=== PATIENT | female | born 1960 | race Caucasian/White ===

== ENCOUNTER → 2020-01-11 10:06 | Outpatient (BNVA) | payer MEDICARE, MEDICAID, SELFPAY | PROVIDERS: Family Provider Nurse Practitioner; PCP Nurse Practitioner; Visit Provider Specialist | DX: R41.89 Other symptoms and signs involving cognitive functions and awareness (principal); E78.5 Hyperlipidemia, unspecified | CPT/HCPCS: 96116; 99213 ==

== ENCOUNTER → 2020-01-26 08:53 | Outpatient (BNVA) | payer MEDICARE, MEDICAID, SELFPAY | PROVIDERS: Family Provider Nurse Practitioner; PCP Nurse Practitioner; Visit Provider Anesthesiology | DX: G89.29 Other chronic pain (principal); M54.41 Lumbago with sciatica, right side; M54.42 Lumbago with sciatica, left side; M54.16 Radiculopathy, lumbar region; M54.9 Dorsalgia, unspecified; Z79.891 Long term (current) use of opiate analgesic | CPT/HCPCS: 99214 ==

== ENCOUNTER → 2020-07-26 14:18 | Outpatient (BNVA) | payer MEDICARE, MEDICAID, SELFPAY | PROVIDERS: Family Provider Nurse Practitioner; PCP Nurse Practitioner; Visit Provider Anesthesiology | DX: G89.29 Other chronic pain (principal); M54.42 Lumbago with sciatica, left side; M54.41 Lumbago with sciatica, right side; Z79.891 Long term (current) use of opiate analgesic | CPT/HCPCS: 99212; 99214 ==

== ENCOUNTER 2020-11-10 10:33 | Outpatient (CLI) | payer MEDICARE, MEDICAID, SELFPAY ==
--- NOTE | 2020-11-10 10:45 | XR_ITS ---
WS: [id number] Exam: XR foot RT min 3V* [id number] Date/Time of Exam: 11/10/2020 11:13 AM Reason For Exam: PAIN IN R FOOT Comparison 03/11/2018. No acute fracture or dislocation. Articular relationships are intact. Soft tissues are unremarkable. Mild degenerative change at the first MP joint and midfoot joints. Osteopenia. XR/XR foot RT min 3V* [id number] IMPRESSION: 1. No fracture noted. 2. Mild degenerative changes and osteopenia calcaneal spurs.
== END 2020-11-10 10:34 | disposition home or self-care (01) ==
PROVIDERS: PCP Nurse Practitioner; Visit Provider Nurse Practitioner Family
DX: M77.31 Calcaneal spur, right foot (principal); M85.871 Other specified disorders of bone density and structure, right ankle and foot
CPT/HCPCS: 73630

== ENCOUNTER → 2021-01-31 08:57 | Outpatient (BNVA) | payer MEDICARE, MEDICAID, SELFPAY | PROVIDERS: PCP Nurse Practitioner; Visit Provider Anesthesiology | DX: G89.29 Other chronic pain (principal); M54.16 Radiculopathy, lumbar region; M54.41 Lumbago with sciatica, right side; M54.42 Lumbago with sciatica, left side; Z79.891 Long term (current) use of opiate analgesic | CPT/HCPCS: 99213 ==

== ENCOUNTER → 2021-07-19 09:00 | Outpatient (BNVA) | payer MEDICARE, MEDICAID, SELFPAY | PROVIDERS: PCP Nurse Practitioner; Visit Provider Anesthesiology | DX: G89.29 Other chronic pain (principal); M54.40 Lumbago with sciatica, unspecified side; M54.16 Radiculopathy, lumbar region; Z79.891 Long term (current) use of opiate analgesic | CPT/HCPCS: 99213 ==

== ENCOUNTER 2022-03-28 14:31 | Outpatient (CLI) | payer MEDICARE, MEDICAID, SELFPAY ==
--- NOTE | 2022-03-28 15:05 | XRR_ITS ---
PROCEDURE INFORMATION: Exam: XR Left Shoulder Exam date and time: 03/28/2022 3:06 PM Age: 61 years old Clinical indication: Patient HX: Pain in left shoulder for 5 months; Additional info: Pain in L shoulder TECHNIQUE: Imaging protocol: Radiologic exam of the Left shoulder. Views: 2 or more views. COMPARISON: MR cervical spin wo con* [id number] 05/09/2017 12:21 PM FINDINGS: Bones/joints: No acute fracture or anterior dislocation. Posterior dislocation is difficult to exclude with these projections. Additional exam may be obtained if clinically indicated. Probable mild osteopenia. Soft tissues: Normal. Other findings: Two views submitted. XR/XR shoulder LT min 2V* [id number] IMPRESSION: No acute fracture. See discussion above.
== END 2022-03-28 14:32 | disposition home or self-care (01) ==
LOC: RAD 14:34
PROVIDERS: PCP Nurse Practitioner Family; Visit Provider Nurse Practitioner Family
DX: M25.512 Pain in left shoulder (principal)
CPT/HCPCS: 73030

== ENCOUNTER 2022-04-26 11:09 | Outpatient (CLI) | payer MEDICARE, MEDICAID, SELFPAY ==
--- NOTE | 2022-04-26 11:16 | MM_ITS ---
WS: [id number] Bilateral screening 3D tomosynthesis digital mammogram, 04/26/2022 Clinical Data: SCREENING Comparison: 06/14/2019, 05/04/2018, 05/09/2017, 10/30/2016, 10/14/2016, 09/20/2015, 03/21/2014, 03/02/2014. Findings: The breast parenchymal pattern shows heterogeneous density. No spiculated masses or clustered calcifi cations are seen. There are no secondary signs of carcinoma. MM/[place] [id number] Impression: 1. Negative bilateral mammogram unchanged. 2. Recommend annual screening mammograms. BIRADS: 1-Negative FOLLOW UP: 1 Year Follow-up The CAD lumber checker was used.
== END 2022-04-26 11:10 | disposition home or self-care (01) ==
LOC: RAD 11:10
PROVIDERS: PCP Nurse Practitioner Family; Visit Provider Nurse Practitioner Family
DX: Z12.31 Encounter for screening mammogram for malignant neoplasm of breast (principal)
CPT/HCPCS: 77063; 77067

== ENCOUNTER → 2022-05-21 08:22 | Outpatient (BNVA) | payer MEDICARE, MEDICAID, SELFPAY | PROVIDERS: PCP Nurse Practitioner Family; Referring Provider Nurse Practitioner Family; Visit Provider Orthopaedic Surgery | DX: M25.512 Pain in left shoulder (principal) | CPT/HCPCS: 99203 ==

== ENCOUNTER 2022-06-07 15:21 | Emergency (ER) | payer MEDICARE, MEDICAID, SELFPAY ==
[2022-06-07] VITALS (7 sets, daily range): BP systolic 145–200; BP diastolic 79–102; PULSE 65–84; RESP 15–24; O2SAT 94–97; BMI 29.4
--- NOTE | 2022-06-07 15:25 | XRR_ITS ---
PROCEDURE INFORMATION: Exam: XR Chest Exam date and time: 06/07/2022 4:05 PM Age: 61 years old Clinical indication: Other: Left sided weakness; Additional info: Stroke TECHNIQUE: Imaging protocol: Radiologic exam of the chest. Views: 1 view. COMPARISON: CR XR chest 1V [id number] 01/14/2017 12:24 PM FINDINGS: Lungs: Lungs are clear bilaterally. Pleural spaces: No pleural effusion. No pneumothorax. Heart/Mediastinum: The cardiac silhouette and mediastinal contours are unremarkable. Vasculature: Stable vascular calcifications in the aorta. Bones/joints: Unremarkable for age. XR/XR chest 1V portable [id number] IMPRESSION: 1. No acute cardiopulmonary process. 2. Incidental/nonacute findings are listed in the report.
--- NOTE | 2022-06-07 15:25 | CTR_ITS ---
PROCEDURE INFORMATION: Exam: CT Head Without Contrast Exam date and time: 06/07/2022 3:20 PM Age: 61 years old Clinical indication: Stroke-like symptoms; Altered mental status/memory loss; Additional info: Symptoms of acute stroke TECHNIQUE: Imaging protocol: Computed tomography of the head without contrast. Radiation optimization: All CT scans at this facility use at least one of these dose optimization techniques: automated exposure control; mA and/or kV adjustment per patient size (includes targeted exams where dose is matched to clinical indication); or iterative reconstruction. Other technique: STROKE PROTOCOL was implemented. COMPARISON: CT head wo con* [id number] 01/14/2019 12:09 PM RADIATION DOSE METRICS: Total DLP (mGy-cm): 1043.98 FINDINGS: Brain: Mild patchy hypodense changes are noted in the bilateral periventricular regions, likely related to chronic ischemic small vessel disease, unchanged. There is mild stable brain parenchymal atrophy. No acute intracranial hemorrhage, mass effect or midline shift. Cerebral ventricles: No pathologic ventricular dilatation. Paranasal sinuses: Visualized sinuses are unremarkable. No fluid levels. Mastoid air cells: Visualized mastoid air cells are well aerated. Bones/joints: Unremarkable. No acute fracture. Soft tissues: Unremarkable. CT/CT head wo con* [id number] IMPRESSION: No acute intracranial findings. ASSESSMENT: ASPECTS ([place] Stroke Program Early CT Score) is 10.
--- NOTE | 2022-06-07 15:25 | W.ED.NEUROSD ---
HPI - Neuro Symptoms/Deficit General: Chief Complaint: Neuro Symptoms/Deficit Stated Complaint: stroke alert Time Seen by Provider: 06/07/22 15:25 History of Present Illness: Ms. Hunter is a 61-year-old lady with complex past medical history who presents to the emergency department as a stroke activation by EMS. She reports being at her baseline health and was at the grocery store when she had sudden onset of abnormal feeling in her head associated with left extremity weakness. Upon EMS arrival patient had right facial droop and left weakness of the upper and lower extremity. Additionally in route she had a 10-minute period of unresponsiveness though no reported seizure activity. Currently has regained consciousness but still endorses some weakness of the left upper extremity and abnormal feeling. Intensity symptoms is moderate. Course has persisted. No other specific changes in health, exacerbating, or alleviating factors identified. Time: 14:25 Last Observed Normal: 14:25 History of same: Yes On Anticoagulants: No Review of Systems General: Reports: 10 or more systems reviewed and unremarkable except in HPI and below PFSH ED PFSH: Medical History Chronic low back pain with sciatica Encounter for long-term use of opiate analgesic Opioid contract exists Family History Other CAD (coronary artery disease) Cancer Stroke Social History Smoking and tobacco status: never smoked Second hand smoke exposure: No Alcohol intake: never History of recent travel: No NIH stroke score NIHSS: Level Of Consciousness - 1a: 0 Level Of Consciousness Questions - 1b: Both Correct Level Of Consciousness Commands - 1c: Both Correct Best Gaze - 2: Normal Visual Schafer - 3: No Visual Loss Facial Palsy - 4: Normal Motor Arm Right - 5: No Drift Motor Arm Left - 5: Drift Motor Leg Right - 6: No Drift Motor Leg Left - 6: Drift Limb Ataxia - 7: Absent Sensory - 8: Mild To Moderate Loss Best Language - 9: No Aphasia Dysarthia - 10: Normal Extinction And Inattention - 11: 0 Score: Total Score: 3 Physical Exam Const: COMMON NORMALS: patient oriented x3 and alert GENERAL APPEARANCE: cooperative and well developed HENMT: COMMON NORMALS: normocephalic and atraumatic HEAD & SCALP: normocephalic and atraumatic THROAT: posterior oropharynx normal Eye: COMMON NORMALS: conjunctivae normal CONJUNCTIVA: Yes conjunctivae normal SCLERA: sclerae normal Neck/C-Spine: COMMON NORMALS: supple GENERAL: Yes trachea midline Resp: COMMON NORMALS: clear to auscultation bilaterally EFFORT & INSPECTION: Yes able to speak in complete sentences AUSCULTATION: clear to auscultation bilaterally Cardio: COMMON NORMALS: regular rate and regular rhythm RATE: regular rate RHYTHM: regular rhythm GI: COMMON NORMALS: Soft to palpation PALPATION: Yes Soft to palpation and No Tenderness to palpation present (GI) Extremity: GENERAL: Yes normal exam except as noted and No edema Neuro: COMMON NORMALS: patient oriented x3, CN's II-XII intact bilaterally and moves all extremities; negative for no focal motor deficits and negative for no sensory deficits noted SENSORIUM/ORIENTATION: Yes alert and No Orientation impaired OTHER: NIH 3 for left upper extremity weakness and sensory change, left lower extremity weakness Psych: COMMON NORMALS: mental status grossly normal and Normal thought process present THOUGHT PROCESS: Normal thought process present Course ED course: - Patient was seen and evaluated by me at bedside in CT. CT reviewed by me upon completion and no obvious evidence of intracranial hemorrhage appreciated. - Patient placed on cardiac monitors, IV access obtained - Initial evaluation notable for exam as above. Patient has perhaps mild asymmetry in strength in the left upper and lower extremity compared to contralateral side and subjective left upper extremity sensory changes. - Clinical history provided is inconsistent with acute CVA as the patient had a period of unresponsiveness though is now recovered and is fully oriented. There was no reported seizure like activity by EMS. - Discussed case with neurology. - Headache treatment ordered - Labs notable for no leukocytosis, normal hemoglobin. Metabolic panel notable for hypokalemia, potassium and magnesium replenishment ordered. Anion gap normal and bicarb normal once again more consistent with nonseizure episode. Glucose normal. Delta troponin negative making arrhythmia or other cardiac event significantly less likely. Urinalysis normal and UDS negative. - Imaging notable for no lobar consolidation or pneumothorax on chest x-ray. CT head negative for acute intracranial pathology, aspect score is 10. CTA demonstrating only mild disease. Patient is already on aspirin, Plavix, and statin for further stroke prevention. - Upon serial reexamination after treatment the patient was significantly improved with resolution of symptoms with migraine treatment. - Based on patient history, evaluation, and testing as interpreted the most likely cause of the patient's condition is abnormal neurologic episode that is not consistent with seizure, cardiac event, or stroke. - The results of ED evaluation were discussed with the patient including prescriptions and/or symptomatic cares (if applicable) including appropriate and responsible use, followup plan, and return precautions. The patient verbalized understanding and felt safe for discharge. - Patient discharged in satisfactory condition. Note: Click bubbles or prepopulated schafer in note writing are used for assistance with data collection and billing and are inherently more limited than narrative and other text portions of this note. Please use narrative for additional clinical history and defer to narrative/free test for any case of contradictory information. If information appears in only free text or click bubble it should be considered present or absent as reported. Please contact note quality analyst/technical writer for clarifications of clinical information or contradictory information. MDM is a brief summary, contradictory or erroneous seeming information should be clarified and full note should be reviewed. Vital Signs: Vital signs: Vital Signs Pulse Rate 84 06/07/22 18:18 Respiratory Rate 18 06/07/22 18:18 Blood Pressure 160/93 06/07/22 18:18 Pulse Oximetry 94 06/07/22 18:18 Oxygen Delivery Me thod 06/07/22 17:45 MDM - Neuro Symptoms/Deficit Medical Decision Making 61-year-old lady presenting as a stroke activation from EMS. Imaging and provided history as well as physical exam not consistent with stroke and certainly not consistent with stroke requiring tPA. Patient significantly improved with resolution of symptoms with migraine cocktail. She has a history of functional disorder and similar episodes in the past. Satisfactory for outpatient management. I will order outpatient EEG and message case management for neurology follow-up. Strict return precautions given. Medical Records I reviewed the patient's medical records. Lab Data I reviewed the patient's lab results. : 06/07/22 15:30 06/07/22 15:30 Radiology Impressions Chest X-Ray 06/07/22 15:25 IMPRESSION: 1. No acute cardiopulmonary process. 2. Incidental/nonacute findings are listed in the report. Head CT 06/07/22 15:25 IMPRESSION: No acute intracranial findings. ASSESSMENT: ASPECTS ([place] Stroke Program Early CT Score) is 10. Head/Neck CTA 06/07/22 15:37 IMPRESSION: 1. Mild atherosclerotic disease in the cavernous segment of the left internal carotid artery. No occlusion, thrombosis, stenosis, extravasation, dissection, or aneurysm. 2. Variant arterial anatomy as described in the report. 3. No acute abnormality of the extracranial soft tissues. IMPRESSION: 1. Mild atherosclerotic disease at the proximal cervical segment of the right internal carotid artery. No occlusion, thrombosis, stenosis, extravasation, dissection, or aneurysm. 2. Variant arterial anatomy as described in the report. 3. Incidental/nonacute findings are listed in the report. REFERENCES: NASCET CRITERIA. The degree of stenosis in the cervical segment of the internal carotid artery is based on NASCET criteria. Normal is no stenosis. Mild is less than 50% stenosis. Moderate is 50-69% stenosis. Severe is 70% to 99% stenosis. Total occlusion is no detectable patent lumen. Laboratory Results WBC 6.6 10^3/uL (4.0-10.0) 06/07/22 15:30 RBC 4.05 10^6/uL (4.1-5.3) L 06/07/22 15:30 Hgb 14.1 g/dL (11.5-15.3) 06/07/22 15:30 Hct 42.2 % (37.0-47.0) 06/07/22 15:30 MCV 104.2 fl (81-99) H 06/07/22 15:30 MCH 34.8 pg (28.0-34.0) H 06/07/22 15:30 MCHC 33.4 g/dL (30.0-36.0) 06/07/22 15:30 RDW 12.0 % (12.1-15.1) L 06/07/22 15:30 Plt Count 229 10^3/cmm (130-400) 06/07/22 15:30 MPV 10.0 fL (7.4-10.4) 06/07/22 15:30 Neut % (Auto) 48.8 % 06/07/22 15:30 Lymph % (Auto) 38.6 % 06/07/22 15:30 [place] % (Auto) 9.2 % 06/07/22 15:30 Eos % (Auto) 2.7 % 06/07/22 15:30 Baso % (Auto) 0.5 % 06/07/22 15:30 Neut # (Auto) 3.25 10^3/uL (1.8-7.7) 06/07/22 15:30 Lymph # (Auto) 2.6 10^3/uL (0.8-4.8) 06/07/22 15:30 [place]o # (Auto) 0.6 10^3/uL (0.2-0.9) 06/07/22 15:30 Eos # (Auto) 0.2 10^3/uL (0.0-0.8) 06/07/22 15:30 Baso # (Auto) 0.0 10^3/uL (0.0-0.1) 06/07/22 15:30 Nucleated RBC % (auto) 0 % 06/07/22 15:30 Nucleated RBCs # 0.0 /100WBC 06/07/22 15:30 PT 13.80 SECONDS (12.1-14.9) 06/07/22 15:30 INR 1.03 (0.8-1.2) 06/07/22 15:30 APTT 31.1 SECONDS (23.9-36.7) 06/07/22 15:30 Sodium 144 mmol/L (136-145) 06/07/22 15:30 Potassium 2.9 mmol/L (3.5-5.1) L 06/07/22 15:30 Chloride 109 mmol/L (98-107) H 06/07/22 15:30 Carbon Dioxide 23 mmol/L (22-29) 06/07/22 15:30 Anion Gap 14.9 (5-19) 06/07/22 15:30 BUN 9 mg/dL (8-23) 06/07/22 15:30 Creatinine 0.7 mg/dL (0.5-0.9) 06/07/22 15:30 GFR Calculation 84.8 mL/min (90-130) L 06/07/22 15:30 Glucose 93 mg/dL (65-115) 06/07/22 15:30 POC Glucose 105 mg/dL (70-110) 06/07/22 15:29 Calculated Osmolality 296 mOsm/kg (285-295) H 06/07/22 15:30 Calcium 8.2 mg/dL (8.5-10.5) L 06/07/22 15:30 Total Bilirubin 0.4 mg/dL (0.15-1.2) 06/07/22 15:30 AST 29 U/L (0-32) 06/07/22 15:30 ALT 42 U/L (0-33) H 06/07/22 15:30 Alkaline Phosphatase 160 U/L (35-105) H 06/07/22 15:30 Troponin T Baseline 6 ng/L (0-10) 06/07/22 15:30 Troponin T 120 Minute 6.00 ng/L (0-10) 06/07/22 17:07 Delta Troponin T 0 ABS# (0-10) 06/07/22 17:07 Total Protein 6.8 g/dL (6.6-8.7) 06/07/22 15:30 Albumin 3.7 g/dL (3.5-5.2) 06/07/22 15:30 Globulin 3.1 g/dL (1.3-4.6) 06/07/22 15:30 Urine Color Yellow (Yellow) 06/07/22 16:37 Urine Appearance Clear (CLEAR) 06/07/22 16:37 Urine pH 7 (5-7) 06/07/22 16:37 Ur Specific [place] 1.010 (1.005-1.030) 06/07/22 16:37 Urine Protein Neg (Negative) 06/07/22 16:37 Urine Glucose (UA) Norm (Normal) 06/07/22 16:37 Urine Ketones Negative (Negative) 06/07/22 16:37 Urine Blood Neg (Negative) 06/07/22 16:37 Urine Nitrate Negative (Negative) 06/07/22 16:37 Urine Bilirubin Neg (Negative) 06/07/22 16:37 Urine Urobilinogen Norm mg/dL (Negative) 06/07/22 16:37 Ur Leukocyte Esterase Negative (Negative) 06/07/22 16:37 Urine Opiates Screen Negative ng/mL (Negative) 06/07/22 16:37 Ur Barbiturates Screen Negative ng/mL (Negative) 06/07/22 16:37 Ur Phencyclidine Scrn Negative ng/mL (Negative) 06/07/22 16:37 Ur Amphetamines Screen Negative ng/mL (Negative) 06/07/22 16:37 U Benzodiazepines Scrn Negative ng/mL (Negative) 06/07/22 16:37 Urine Cocaine Screen Negative ng/mL (Negative) 06/07/22 16:37 U Marijuana (THC) Screen Negative ng/mL (Negative) 06/07/22 16:37 Critical Care Time Critical Care Time: Critical Care Time: Yes Total Critical Care Time: 35 Attestation: Due to a high probability of clinically significant, possibly life threatening deterioration, the patient required my highest level of attention and preparedness to intervene emergently and I personally spent this critical care time directly and personally managing the patient. This critical care time included obtaining a history; examining the patient; pulse oximetry; ordering and review of laboratory and imaging studies; arranging urgent treatment with development of a management plan; evaluation of patient's response to treatment; frequent reassessment; and, discussions with other providers as applicable. It was exclusive of separately billable procedures. Primary system involved is neuro. Discharge Plan Discharge Patient Disposition: Home Clinical Impression: Stroke-like symptoms, Abnormal neurological findings Condition: Stable Prescriptions: New potassium chloride 20 mEq tablet extended release 20 meq PO DAILY Qty: 5 0RF No Action donepezil [Aricept] 10 mg tablet 10 mg PO DAILY baclofen 10 mg tablet 20 mg PO TID terbinafine HCl 250 mg tablet 250 mg PO DAILY acetaminophen [Tylenol Extra Strength] 500 mg tablet 500 mg PO Q6H PRN acetaminophen-codeine 300-30 mg tablet 1 tab PO Q6H PRN gabapentin 800 mg tablet 800 mg PO TID 30 Days Qty: 90 2RF clopidogrel 75 mg tablet 75 mg PO DAILY Qty: 30 5RF atorvastatin 40 mg tablet See Rx Instructions .ROUTE .COMPLEX Qty: 30 0RF Dose Instruction: TAKE 1 TABLET BY MOUTH DAILY Rx Instructions: TAKE 1 TABLET BY MOUTH DAILY aspirin 325 mg tablet,delayed release (DR/EC) See Rx Instructions .ROUTE .COMPLEX Qty: 30 0RF Dose Instruction: TAKE 1 TABLET BY MOUTH DAILY. Rx Instructions: TAKE 1 TABLET BY MOUTH DAILY. topiramate 50 mg tablet See Rx Instructions .ROUTE .COMPLEX Qty: 90 3RF Dose Instruction: TAKE 1 TABLET BY MOUTH DAILY Rx Instructions: TAKE 1 TABLET BY MOUTH DAILY Discharge Orders: Discharge ED (Routine); Ordered 06/07/22 Ordered By: Obed Mai Referrals: Sam,Amy, [employer] DREDGER [Primary Care Provider] - Discharge Diet: Usual diet Discharge Activity: Increase activity as tolerated Patient Instructions: Hypokalemia (ED) Activity Restrictions/Additional Instructions: Thank you for visiting the emergency department. You were seen evaluated for abnormal neurologic event. The exact cause of your symptoms is unclear though does not appear to need hospitalization at this time. Please continue your current medication regimen ensuring that you continue to take your aspirin, clopidogrel, and atorvastatin. I will message case management for follow-up with neurology and outpatient EEG. Return to the emergency department for any new symptoms or anything else that you are concerned about a feel needs emergency department evaluation. Coding Level of Care Code ED Casing Sewer for Navneet Fwd Exam Comprehensive
--- NOTE | 2022-06-07 15:26 | ECG_ITS ---
[facility] Test Date: 2022-06-07 Pat Name: Sindi Hunter Department: Room: Gender: Female Collections Technician: : 1960 Requested By: Obed Mai Order Number: [id number] Juan Francisco MD: Donald Powell M.D. Measurements Intervals [place] Rate: 69 P: -6 [place]: 147 QRS: 19 QRSD: 92 T: 53 QT: 409 QTc: 439 Interpretive Statements SINUS RHYTHM NONSPECIFIC T-WAVE ABNORMALITY Compared to ECG 01/14/2019 12:37:51 Sinus bradycardia no longer present T-wave abnormality still present Electronically Signed On 06-07-2022 16:50:32 CDT by Donald Powell M.D. [email or web address]
[2022-06-07 15:32] LABS: Glucose Point of Care 105 mg/dL (70-110)
--- NOTE | 2022-06-07 15:37 | CTR_ITS ---
PROCEDURE INFORMATION: Exam: CTA Head With Contrast, Arteriography Exam date and time: 06/07/2022 3:49 PM Age: 61 years old Clinical indication: Stroke-like symptoms; Generalized weakness; Additional info: Stroke like episode TECHNIQUE: Imaging protocol: Computed tomographic angiography of the head with contrast. Exam focused on the arteries. Sagittal and coronal reformatted images were created and reviewed. 3D rendering (Not supervised by radiologist): MIP and/or 3D reconstructed images were created by the technologist. Radiation optimization: All CT scans at this facility use at least one of these dose optimization techniques: automated exposure control; mA and/or kV adjustment per patient size (includes targeted exams where dose is matched to clinical indication); or iterative reconstruction. Contrast material: OMNIPAQUE 350; Contrast volume: 100 ml; Contrast route: INTRAVENOUS (IV); COMPARISON: CT head wo con* [id number] 06/07/2022 3:20 PM RADIATION DOSE METRICS: Total DLP (mGy-cm): 402.96 FINDINGS: ANTERIOR CIRCULATION: Right internal carotid artery: Unremarkable. No occlusion, thrombosis, stenosis, extravasation, dissection, or aneurysm. Right middle cerebral artery: Unremarkable. No occlusion, thrombosis, stenosis, extravasation, dissection, or aneurysm. Right anterior cerebral artery: Unremarkable. No occlusion, thrombosis, stenosis, extravasation, dissection, or aneurysm. Anterior communicating artery: The anterior communicating artery is unremarkable. Left internal carotid artery: Mild calcified plaque at the cavernous segment. No occlusion, thrombosis, stenosis, extravasation, dissection, or aneurysm. Left middle cerebral artery: Unremarkable. No occlusion, thrombosis, stenosis, extravasation, dissection, or aneurysm. Left anterior cerebral artery: Unremarkable. No occlusion, thrombosis, stenosis, extravasation, dissection, or aneurysm. POSTERIOR CIRCULATION: Right vertebral artery: Unremarkable. No occlusion, thrombosis, stenosis, extravasation, dissection, or aneurysm. Left vertebral artery: Unremarkable. No occlusion, thrombosis, stenosis, extravasation, dissection, or aneurysm. Basilar artery: No occlusion or significant stenosis. No aneurysm. Right posterior cerebral artery: Arises from the supraclinoid segment of the right internal carotid artery. Right posterior cerebral artery is otherwise unremarkable. No occlusion, thrombosis, stenosis, extravasation, dissection, or aneurysm. Left posterior cerebral artery: . Unremarkable. No occlusion, thrombosis, stenosis, extravasation, dissection, or aneurysm. Right posterior communicating artery: Diffusely small caliber, likely congenital in nature. The right posterior communicating artery extends between the right posterior cerebral artery and the basilar artery. Left posterior communicating artery: The left posterior communicating artery is unremarkable. Brain: No definite mass, mass effect, or midline shift. Cerebral ventricles: No hydrocephalus. Orbital cavities: Globes and lenses, extraocular muscles, and optic nerves are intact bilaterally. No acute intraorbital abnormality. Mastoid air cells: Mastoid air cells are clear bilaterally. Paranasal sinuses: Mild mucoperiosteal thickening in the right and left maxillary sinuses. Other paranasal sinuses are clear. Nasal cavity: Mild left nasal septal deviation. Bones/joints: No acute fracture. Soft tissues: Unremarkable. PROCEDURE INFORMATION: Exam: CTA Neck With Contrast Exam date and time: 06/07/2022 3:49 PM Age: 61 years old Clinical indication: Stroke-like symptoms; Generalized weakness; Additional info: Stroke like episode TECHNIQUE: Imaging protocol: Computed tomographic angiography of the neck with contrast. Sagittal and coronal reformatted images were created and reviewed. 3D rendering (Not supervised by radiologist): MIP and/or 3D reconstructed images were created by the technologist. Radiation optimization: All CT scans at this facility use at least one of these dose optimization techniques: automated exposure control; mA and/or kV adjustment per patient size (includes targeted exams where dose is matched to clinical indication); or iterative reconstruction. Contrast material: OMNIPAQUE 350; Contrast volume: 100 ml; Contrast route: INTRAVENOUS (IV); COMPARISON: MR angio neck wo con [id number] 12/27/2016 10:32 PM RADIATION DOSE METRICS: Total DLP (mGy-cm): 402.96 FINDINGS: Right common carotid artery: Unremarkable. No occlusion, thrombosis, stenosis, extravasation, dissection, or aneurysm. Right internal carotid artery: Mild calcified plaque at the proximal right ICA. No occlusion, thrombosis, stenosis, extravasation, dissection, or aneurysm. Right external carotid artery: Unremarkable. No occlusion, thrombosis, stenosis, extravasation, dissection, or aneurysm. Left common carotid artery: Unremarkable. No occlusion, thrombosis, stenosis, extravasation, dissection, or aneurysm. Left internal carotid artery: Unremarkable. No occlusion, thrombosis, stenosis, extravasation, dissection, or aneurysm. Left external carotid artery: Unremarkable. No occlusion, thrombosis, stenosis, extravasation, dissection, or aneurysm. Right vertebral artery: Small accessory artery between the 2 portions of the right vertebral artery at the C1 level. Right vertebral artery is otherwise unremarkable. No occlusion, thrombosis, stenosis, extravasation, dissection, or aneurysm. Left vertebral artery: Unremarkable. No occlusion, thrombosis, stenosis, extravasation, dissection, or aneurysm. Brachiocephalic artery: Unremarkable. No occlusion, thrombosis, stenosis, extravasation, dissection, or aneurysm. Subclavian arteries: Mild calcified plaque in the proximal right and left subclavian arteries. No occlusion, thrombosis, stenosis, extravasation, dissection, or aneurysm. Aorta: Visualized aortic arch is unremarkable. No occlusion, thrombosis, stenosis, extravasation, dissection, or aneurysm. Veins: Small foci of air in the the left brachiocephalic vein, likely from a previous injection. Lymph nodes: No lymphadenopathy. Soft tissues: No soft tissue swelling. No radiopaque foreign body. Bones/joints: Multilevel degenerative changes of varying severity in the visualized spine. Lungs: Visualized lungs are clear. CT/CT angio headneck* [id number] IMPRESSION: 1. Mild atherosclerotic disease in the cavernous segment of the left internal carotid artery. No occlusion, thrombosis, stenosis, extravasation, dissection, or aneurysm. 2. Variant arterial anatomy as described in the report. 3. No acute abnormality of the extracranial soft tissues. IMPRESSION: 1. Mild atherosclerotic disease at the proximal cervical segment of the right internal carotid artery. No occlusion, thrombosis, stenosis, extravasation, dissection, or aneurysm. 2. Variant arterial anatomy as described in the report. 3. Incidental/nonacute findings are listed in the report. REFERENCES: NASCET CRITERIA. The degree of stenosis in the cervical segment of the internal carotid artery is based on NASCET criteria. Normal is no stenosis. Mild is less than 50% stenosis. Moderate is 50-69% stenosis. Severe is 70% to 99% stenosis. Total occlusion is no detectable patent lumen.
[2022-06-07 15:43] LABS: Basophils % 0.5 %; Eosinophils # 0.2 10^3/uL (0.0-0.8); Eosinophils % 2.7 %; Hematocrit 42.2 % (37.0-47.0); Hemoglobin 14.1 g/dL (11.5-15.3); Lymphocytes # 2.6 10^3/uL (0.8-4.8); Lymphocytes % 38.6 %; Mean Corpuscular HGB Conc 33.4 g/dL (30.0-36.0); Mean Corpuscular Hemoglobin 34.8 pg (28.0-34.0); Mean Corpuscular Volume 104.2 fl (81-99); Monocytes # 0.6 10^3/uL (0.2-0.9); Monocytes % 9.2 %; Neutrophils # 3.25 10^3/uL (1.8-7.7); Neutrophils % 48.8 %; Nucleated Red Blood Cells % 0 %; Platelet Count 229 10^3/cmm (130-400); Red Blood Count 4.05 10^6/uL (4.1-5.3); White Blood Count 6.6 10^3/uL (4.0-10.0)
[2022-06-07] MEDS: iohexol 350 mg/mL 100 mL Btl IV (16:00)
[2022-06-07 16:07] LABS: Alanine Aminotransferase 42 U/L (0-33); Albumin Level 3.7 g/dL (3.5-5.2); Alkaline Phosphatase 160 U/L (35-105); Anion Gap 14.9 (5-19); Aspartate Amino Transferase 29 U/L (0-32); Blood Urea Nitrogen 9 mg/dL (8-23); Calcium 8.2 mg/dL (8.5-10.5); Carbon Dioxide 23 mmol/L (22-29); Chloride 109 mmol/L (98-107); Globulin 3.1 g/dL (1.3-4.6); Glomerular Filtration Rate 84.8 mL/min (90-130); Glucose 93 mg/dL (65-115); Osmolality Calculated 296 mOsm/kg (285-295); Sodium 144 mmol/L (136-145); Total Bilirubin 0.4 mg/dL (0.15-1.2); Total Protein 6.8 g/dL (6.6-8.7)
[2022-06-07 16:08] LABS: Troponin(5th) Baseline 6 ng/L (0-10)
[2022-06-07] MEDS: acetaminophen 1,000 MG/100 ML PIGGYBACK 400 MG IV (16:11)
[2022-06-07] MEDS: diphenhydrAMINE 50 mg/mL SDV 1mL 12.5 MG IVP (16:13)
[2022-06-07] MEDS: metoclopramide 5 mg/mL SDV 2 mL 10 MG IVP (16:15)
[2022-06-07 16:20] LABS: Potassium 2.9 mmol/L (3.5-5.1)
[2022-06-07 16:21] LABS: INR 1.03 (0.8-1.2)
[2022-06-07 16:22] LABS: Partial Thromboplastin Time 31.1 SECONDS (23.9-36.7)
[2022-06-07] MEDS: potassium chloride ER 20 mEq Tablet 40 MEQ PO (17:10)
[2022-06-07] MEDS: magnesium sulfate premix 2 GM/50 ML PIGGYBACK IV (17:11)
[2022-06-07 17:15] LABS: Add Urine Microscopic? NO; Charge for UA Resulting for Rev
[2022-06-07 17:21] LABS: Bilirubin Urine Neg (Negative); Blood Urine Neg (Negative); Glucose Urine UA Norm (Normal); Ketones Urine Negative (Negative); Leukocyte Esterase Urine Negative (Negative); Nitrate Urine Negative (Negative); Protein Urine Neg (Negative); Urine Appearance Clear (CLEAR); Urine Color Yellow (Yellow); Urobilinogen Urine Norm (Negative); pH Urine 7 (5-7)
--- NOTE | 2022-06-07 17:26 | ECG_ITS ---
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 Measurements Intervals [place] Rate: 62 P: -14 VT: 137 QRS: 14 QRSD: 89 T: 56 QT: 436 QTc: 446 Interpretive Statements SINUS RHYTHM NONSPECIFIC T-WAVE ABNORMALITY Compared to ECG 06/07/2022 15:33:04 No significant changes Electronically Signed On 06-10-2022 23:17:49 CDT by Abril Myers M.D. [id number]
[2022-06-07 17:29] LABS: Amphetamines Screen Urine Negative (Negative); Barbiturates Screen Urine Negative (Negative); Benzodiazepines Screen Urine Negative (Negative); Cocaine Screen Urine Negative (Negative); Opiate Screen Urine Negative (Negative); PCP Screen Urine Negative (Negative); THC Screen Urine Negative (Negative)
[2022-06-07 18:29] LABS: Troponin 5 2HR Delta 0 ABS# (0-10)
--- NOTE | 2022-06-10 13:40 | DCPLANNER ---
Addendum entered by Reyna Lopes 08/07/22 11:55: Patient had a follow up appointment scheduled with neurology - patient did not attend appointment. Addendum entered by Reyna Lopes 07/11/22 05:50: Patient has a follow up appointment scheduled for Friday, July 24, 2022 at 11:[address] Hoang at neurology. Clinic will call patient with appointment information. Patient had an outpatient EEG scheduled for 06.18.22 - patient did attend appointment. Addendum entered by Reyna Lopes 06/10/22 13:48: child nutrition manager had message to schedule an outpatient EEG for patient, oil field caser faxed signed order to neurology, who will call patient with appointment information. Original Note: child nutrition manager had message to schedule a follow up appointment for patient with neurology. child nutrition manager sent patients information to the front office staff at neurology. Patients information will be printed and reviewed. Clinic will call patient with appointment information.
== END 2022-06-07 18:22 | disposition home or self-care (01) ==
PROVIDERS: Emergency Provider Emergency Medicine; PCP Nurse Practitioner Family
DX: R29.818 Other symptoms and signs involving the nervous system (principal); Z79.02 Long term (current) use of antithrombotics/antiplatelets; E87.6 Hypokalemia
CPT/HCPCS: 36416; 70450; 70496; 70498; 71045; 80053; 80306; 81003; 82962; 84484; 85025; 85610; 85730; 93005; 96365; 96375; 99285; 99291; J1200; J2765; J3475; Q9967

== ENCOUNTER → 2022-06-18 10:34 | Outpatient (BNVA) | payer MEDICARE, MEDICAID, SELFPAY | PROVIDERS: PCP Nurse Practitioner Family; Referring Provider Emergency Medicine; Visit Provider Specialist | DX: F44.4 Conversion disorder with motor symptom or deficit (principal); R56.9 Unspecified convulsions | CPT/HCPCS: 95812; 95816 ==

== ENCOUNTER 2022-06-19 10:08 | Outpatient (CLI) | payer MEDICARE, MEDICAID, SELFPAY ==
--- NOTE | 2022-06-19 10:17 | MR_ITS ---
WS: [id number] MRI LEFT SHOULDER HISTORY: left shoulder pain COMPARISON: None available. TECHNIQUE: Multiplanar sequences of the shoulder joint are submitted. Minimal AC joint arthritis. No significant osteophyte encroachment upon the supraspinatus. No signifi cant subacromial impingement. No os acromion. Biceps tendon normal position in the bicipital groove. No atrophy or edema or fatty replacement of the rotator cuff muscles. No tendon tear. There is tendin opathy in the distal supraspinatus tendon. There is a small amount of fluid in the rotator cuff inter anand. The very tiny cyst in the humeral head. No labral abnormality. No significant joint effusion. No rmal axillary pouch. MR/MR shoulder LT con* [id number] IMPRESSION: 1. Very minimal tendinopathy in the distal supraspinatus tendon. 2. No tendon tear. 3. Very mild AC joint arthritis. 4. No labral abnormality.
== END 2022-06-19 10:09 | disposition home or self-care (01) ==
LOC: RAD 10:10
PROVIDERS: PCP Nurse Practitioner Family; Visit Provider Orthopaedic Surgery
DX: M13.812 Other specified arthritis, left shoulder
CPT/HCPCS: 73221

== ENCOUNTER → 2022-06-26 08:13 | Outpatient (BNVA) | payer MEDICARE, MEDICAID, SELFPAY | PROVIDERS: PCP Nurse Practitioner Family; Visit Provider Orthopaedic Surgery | DX: M25.512 Pain in left shoulder (principal) | CPT/HCPCS: 99213 ==

== ENCOUNTER → 2022-08-20 07:54 | Outpatient (BNVA) | payer MEDICARE, MEDICAID, SELFPAY | PROVIDERS: PCP Nurse Practitioner Family; Visit Provider Podiatrist Foot & Ankle Surgery | DX: B35.1 Tinea unguium (principal) | CPT/HCPCS: 99204 ==

== ENCOUNTER → 2022-09-12 12:24 | Outpatient (BNVA) | payer MEDICARE, MEDICAID, SELFPAY | PROVIDERS: PCP Nurse Practitioner Family; Visit Provider Specialist | DX: G43.101 Migraine with aura, not intractable, with status migrainosus (principal); Z86.73 Personal history of transient ischemic attack (TIA), and cerebral infarction without residual deficits | CPT/HCPCS: 99215 ==

== ENCOUNTER 2023-06-24 13:09 | Outpatient (CLI) | payer MEDICARE, MEDICAID, SELFPAY ==
--- NOTE | 2023-06-24 13:24 | XR_ITS ---
WS: [id number] Right knee, AP and lateral views, 06/24/2023 Clinical Data: Right knee pain Comparison: None. Findings: No fractures or dislocations are seen. The joint spaces are normal. The patella is intact. The soft t issues are unremarkable. Impression: Negative right knee. Kellgren-Mian Classification: grade 0 (none): definite absence of x-ray changes of osteoarthritis
== END 2023-06-24 13:10 | disposition home or self-care (01) ==
PROVIDERS: PCP Nurse Practitioner Family; Visit Provider Nurse Practitioner Family
DX: M25.561 Pain in right knee (principal)
CPT/HCPCS: 73560

== ENCOUNTER 2023-06-28 16:27 | Emergency (ER) | payer MEDICARE, MEDICAID, SELFPAY ==
[2023-06-28 16:28] VITALS: BP 168/84; PULSE 82; RESP 18; TEMP 36.8; O2SAT 96; BMI 25.1
--- NOTE | 2023-06-28 16:29 | XRR_ITS ---
PROCEDURE INFORMATION: Exam: XR Chest Exam date and time: 06/28/2023 4:39 PM Age: 62 years old Clinical indication: Patient HX: Flu like symptoms; Fever; HTN TECHNIQUE: Imaging protocol: Radiologic exam of the chest. Views: 1 view. COMPARISON: CR XR chest 1V portable [id number] 06/07/2022 4:05 PM FINDINGS: Lungs: Unremarkable. No consolidation. Pleural spaces: Unremarkable. No pleural effusion. No pneumothorax. Heart/Mediastinum: Unremarkable. No cardiomegaly. Bones/joints: Unremarkable. XR/XR chest 1V portable [id number] IMPRESSION: No acute findings.
[2023-06-28 17:20] LABS: Basophils % 0.2 %; Hematocrit 44.9 % (36-47); Lymphocytes # 0.4 10^3/uL (0.8-4.8); Lymphocytes % 6.9 %; Mean Corpuscular Hemoglobin 34.6 pg (27-33); Mean Corpuscular Volume 104.9 fl (85-98); Mean Platelet Volume 9.9 fL (7.4-10.4); Monocytes # 0.2 10^3/uL (0.2-0.9); Monocytes % 3.9 %; Neutrophils # 5.24 10^3/uL (1.8-7.7); Neutrophils % 88.7 %; Nucleated Red Blood Cells % 0 %; Platelet Count 207 10^3/cmm (157-399); Red Blood Count 4.28 10^6/uL (3.85-5.65); White Blood Count 5.91 10^3/uL (3.29-11.43)
[2023-06-28 17:26] LABS: Influenza A by IFA negative (Negative); Influenza B by IFA negative (Negative); SARS Covid-2 Antigen negative (Negative)
[2023-06-28 17:38] LABS: Anion Gap 17.4 (5-19); Blood Urea Nitrogen 16 mg/dL (8-23); Calcium 9.3 mg/dL (8.5-10.5); Carbon Dioxide 20 mmol/L (22-29); Chloride 105 mmol/L (98-107); Glomerular Filtration Rate 63.2 mL/min (90-130); Glucose 156 mg/dL (65-115); Osmolality Calculated 292 mOsm/kg (285-295); Potassium 3.4 mmol/L (3.5-5.1); Sodium 139 mmol/L (136-145)
--- NOTE | 2023-06-28 18:14 | ED_ITS ---
HPI - URI/Sore Throat General: Chief Complaint: Upper Respiratory Infection Stated Complaint: FLU LIKE SYMPTOMS Time Seen by Provider: 06/28/23 16:28 History of Present Illness: Patient presents to the emergency department with complaints of chest congestion, nasal congestion, cough, nausea vomiting and diarrhea. Onset of symptoms 2 days ago. Patient denies fever or chills. Denies abdominal pain, chest pain, shortness of breath. Associated symptoms: Reports diarrhea, nasal congestion, nausea and vomiting; Deny abdominal pain, chills, chest pain, ear or mastoid pain, fever(s), headache(s) or sinus pain Review of Systems General: Reports: 10 or more systems reviewed and unremarkable except in HPI and below Const: Reports: change in appetite and fatigue; Denies: fever(s), chills, change in weight or malaise Eyes: Denies: change in vision, eye discomfort, eye discharge or eye redness ENMT: Reports: nasal congestion and post nasal drip; Denies: throat pain, enlarged tonsils, odynophagia, hoarseness, ear or mastoid pain, ear discharge, change in hearing, tinnitus or sinus pain Card: Denies: chest pain, palpitations, irregular heart rhythm, edema, dyspnea on exertion, orthopnea or leg pain with exertion Resp: Denies: dyspnea, productive cough, non-productive cough, wheezing, stridor or chest congestion GI: Reports: nausea, vomiting and diarrhea; Denies: abdominal pain, dysphagia, constipation, bloating, GI cramping, hematochezia or melena : Denies: flank pain, difficulty voiding, dysuria, urinary frequency, urinary urgency, urinary hesitancy, oliguria or hematuria Musc: Denies: neck pain, back pain, extremity pain, joint pain, joint swelling, joint redness, joint warmth or muscle weakness Skin/Breast: Denies: rash, pruritus, erythema, photosensitivity or new lesions Neuro: Denies: headache(s), numbness in extremities, weakness in extremities, sensory changes, lack of coordination, difficulty walking, frequent falls, dizziness, confusion, Slurred speech present, difficulty communicating thoughts, seizure-like activity or involuntary movements Endo: Denies: polyuria, polydipsia or tired all the time Ector/Lymph: Denies: easy bruising or easy bleeding PFSH ED PFSH: Medical History Chronic low back pain with sciatica Encounter for long-term use of opiate analgesic Functional neurological symptom disorder with weakness or paralysis Opioid contract exists Family History Other CAD (coronary artery disease) Cancer Stroke Social History Smoking and tobacco/nicotine status: never used tobacco/nicotine Second hand smoke exposure: No Alcohol intake: never Substance/Drug Use: never Physical Exam Const: COMMON NORMALS: no acute distress, patient oriented x3 and alert GENERAL APPEARANCE: cooperative ORIENTATION/CONSCIOUSNESS: Yes awake, Yes oriented to person, Yes oriented to place and Yes oriented to time HENMT: COMMON NORMALS: normocephalic and atraumatic HEAD & SCALP: normocephalic and atraumatic FACE & SINUS: normal facial exam MOUTH: Normal oral and palatal mucosa present THROAT: posterior oropharynx normal Eye: COMMON NORMALS: Equal, round and reactive pupils present, EOMs intact bilaterally, conjunctivae normal and no scleral icterus GENERAL EYE: appe arance normal, both eyes and all related structures ALIGNMENT: Yes alignment normal PERIORBITAL: periorbital findings normal CONJUNCTIVA: Yes conjunctivae normal PUPIL: Yes Equal, round and reactive pupils present Neck/C-Spine: COMMON NORMALS: full ROM GENERAL: Yes normal visual inspection Lymph: LYMPHATIC: no lymphadenopathy noted Chest: COMMONS NORMALS: normal inspection of the chest Breast/axilla inspection: Yes no chest deformity, asymmetry, normal contours, no nodules, masses, tenderness Resp: COMMON NORMALS: normal respiratory effort, No retractions, No use of accessory muscles and clear to auscultation bilaterally EFFORT & INSPECTION: Yes able to speak in complete sentences and Yes symmetric chest movement AUSCULTATION: clear to auscultation bilaterally Cardio: COMMON NORMALS: regular rate, regular rhythm and Peripheral pulses 2+ throughout RATE: regular rate RHYTHM: regular rhythm PERIPHERAL PULSES: Peripheral pulses 2+ throughout GI: COMMON NORMALS: Normal to inspection, nondistended, normoactive bowel sounds present, Soft to palpation, non-tender and No hepatosplenomegaly present INSPECTION: Yes normal to inspection AUSCULTATION: Yes normoactive bowel sounds PALPATION: Yes Soft to palpation and Yes No hepatosplenomegaly present RECTAL EXAM: deferred Extremity: COMMON NORMALS: normal to inspection GENERAL: Yes normal exam except as noted Neuro: COMMON NORMALS: patient oriented x3 SENSORIUM/ORIENTATION: Yes alert, Yes oriented to person, Yes oriented to place and Yes oriented to time CRANIAL NERVES: Yes CN normal except as noted Psych: COMMON NORMALS: mental status grossly normal, Normal thought process present, cooperative, activity/motor behavior normal, denies homicidal ideation and denies suicidal ideation THOUGHT PROCESS: Normal thought process present Skin: COMMON NORMALS: no rashes or lesions noted, no wounds and turgor normal GENERAL SKIN EXAM: no rashes or lesions noted and turgor normal Course Vital Signs: Vital signs: Vital Signs Temperature 98.3 F 06/28/23 16:28 Pulse Rate 82 06/28/23 16:28 Respiratory Rate 18 06/28/23 16:28 Blood Pressure 168/84 06/28/23 16:28 Pulse Oximetry 96 06/28/23 16:28 Oxygen Delivery Me thod Room Air 06/28/23 16:28 MDM - URI/Sore Throat Medical Decision Making Patient had a differential diagnosis of pneumonia, COVID, influenza, URI, gastroenteritis. Please the patient is suffering from viral illness due to her laboratory studies revealing no leukocytosis, acute anemias. Her potassium is mildly low. Regarding give her 20 mEq of potassium. Her influenza and COVID are all negative. Chest x-ray reveals no acute findings Patient is can be treated with supportive care. She has been encouraged to push fluids get plenty of rest and activity. If she is no better in the next 48 hours she should return here if she becomes worse at any time she should return for reevaluation Lab Data 06/28/23 16:52 06/28/23 16:52 Radiology Impressions Chest X-Ray 06/28/23 16:29 IMPRESSION: No acute findings. Laboratory Results WBC 5.91 10^3/uL (3.29-11.43) 06/28/23 16:52 RBC 4.28 10^6/uL (3.85-5.65) 06/28/23 16:52 Hgb 14.80 g/dL (11.27-16.99) 06/28/23 16:52 Hct 44.9 % (36-47) 06/28/23 16:52 MCV 104.9 fl (85-98) H 06/28/23 16:52 MCH 34.6 pg (27-33) H 06/28/23 16:52 MCHC 33.0 g/dL (30-55) 06/28/23 16:52 RDW 12.0 % (12.1-15.1) L 06/28/23 16:52 Plt Count 207 10^3/cmm (157-399) 06/28/23 16:52 MPV 9.9 fL (7.4-10.4) 06/28/23 16:52 Neut % (Auto) 88.7 % 06/28/23 16:52 Lymph % (Auto) 6.9 % 06/28/23 16:52 [place] % (Auto) 3.9 % 06/28/23 16:52 Eos % (Auto) 0.0 % 06/28/23 16:52 Baso % (Auto) 0.2 % 06/28/23 16:52 Neut # (Auto) 5.24 10^3/uL (1.8-7.7) 06/28/23 16:52 Lymph # (Auto) 0.4 10^3/uL (0.8-4.8) L 06/28/23 16:52 [place] # (Auto) 0.2 10^3/uL (0.2-0.9) 06/28/23 16:52 Eos # (Auto) 0.0 10^3/uL (0.0-0.8) 06/28/23 16:52 Baso # (Auto) 0.0 10^3/uL (0.0-0.1) 06/28/23 16:52 Nucleated RBC % (auto) 0 % 06/28/23 16:52 Nucleated RBCs # 0.0 /100WBC 06/28/23 16:52 Sodium 139 mmol/L (136-145) 06/28/23 16:52 Potassium 3.4 mmol/L (3.5-5.1) L 06/28/23 16:52 Chloride 105 mmol/L (98-107) 06/28/23 16:52 Carbon Dioxide 20 mmol/L (22-29) L 06/28/23 16:52 Anion Gap 17.4 (5-19) 06/28/23 16:52 BUN 16 mg/dL (8-23) 06/28/23 16:52 Creatinine 0.9 mg/dL (0.5-0.9) 06/28/23 16:52 GFR Calculation 63.2 mL/min (90-130) L 06/28/23 16:52 Glucose 156 mg/dL (65-115) H 06/28/23 16:52 Calculated Osmolality 292 mOsm/kg (285-295) 06/28/23 16:52 Calcium 9.3 mg/dL (8.5-10.5) 06/28/23 16:52 Influenza Type A Ag negative (Negative) 06/28/23 Unknown Influenza Type B Ag negative (Negative) 06/28/23 Unknown SARS-CoV-2 Ag (Rapid) negative (Negative) 06/28/23 Unknown All radiology interpretation(s) finalized by discharge Discharge Plan Discharge Patient Disposition: Home Clinical Impression: Viral infection Condition: Stable Prescriptions: No Action donepezil [Aricept] 10 mg tablet 10 mg PO DAILY baclofen 10 mg tablet 20 mg PO TID terbinafine HCl 250 mg tablet 250 mg PO DAILY acetaminophen [Tylenol Extra Strength] 500 mg tablet 500 mg PO Q6H PRN acetaminophen-codeine 300-30 mg tablet 1 tab PO Q6H PRN gabapentin 800 mg tablet 800 mg PO TID 30 Days Qty: 90 2RF ciclopirox 0.77 % gel 1 applic topical BID 28 Days Qty: 100 0RF clopidogrel 75 mg tablet 75 mg PO DAILY Qty: 30 5RF atorvastatin 40 mg tablet See Rx Instructions .ROUTE .COMPLEX Qty: 30 0RF Dose Instruction: TAKE 1 TABLET BY MOUTH DAILY Rx Instructions: TAKE 1 TABLET BY MOUTH DAILY aspirin 325 mg tablet,delayed release (DR/EC) See Rx Instructions .ROUTE .COMPLEX Qty: 30 0RF Dose Instruction: TAKE 1 TABLET BY MOUTH DAILY. Rx Instructions: TAKE 1 TABLET BY MOUTH DAILY. topiramate 50 mg tablet See Rx Instructions .ROUTE .COMPLEX Qty: 90 3RF Dose Instruction: TAKE 1 TABLET BY MOUTH DAILY Rx Instructions: TAKE 1 TABLET BY MOUTH DAILY potassium chloride 20 mEq tablet extended release 20 meq PO DAILY Qty: 5 0RF Discharge Orders: Discharge ED (Routine); Ordered 06/28/23 Ordered By: Alfonzo Adams Referrals: Amy Vargas NP [Primary Care Provider] - Discharge Diet: Advance as tolerated Discharge Activity: Resume usual activity Patient Instructions: Gastroenteritis (ED), Pain Management, Viral Syndrome - Adult Coding Level of Care Code ED Seismograph Observer for Navneet Reynaga
[2023-06-28 18:29] VITALS: PULSE 87; O2SAT 97
== END 2023-06-28 18:30 | disposition home or self-care (01) ==
PROVIDERS: Emergency Provider Nurse Practitioner; PCP Nurse Practitioner Family
DX: B34.9 Viral infection, unspecified (principal); Z79.82 Long term (current) use of aspirin; Z79.02 Long term (current) use of antithrombotics/antiplatelets; Z11.52 Encounter for screening for COVID-19
CPT/HCPCS: 36415; 71045; 80048; 85025; 87426; 87804; 99284

== ENCOUNTER 2023-12-24 14:47 | Outpatient (CLI) | payer MEDICARE, MEDICAID, SELFPAY ==
--- NOTE | 2023-12-24 14:50 | MM_ITS ---
WS: [id number] Bilateral screening 3D tomosynthesis digital mammogram, 12/24/2023 Clinical Data: SCREENING Comparison: 04/26/2022, 06/14/2019, 05/04/2018, 05/09/2017, 10/30/2016, 10/14/2016, 09/20/2015, 03/21/2014, 02/15. Findings: The breast parenchymal pattern shows heterogeneous density. No spiculated masses or clustered calcifi cations are seen. There are no secondary signs of carcinoma. MM/[place] [id number] Impression: 1. Negative bilateral mammogram unchanged. 2. Recommend annual screening mammograms. BIRADS: 1-Negative FOLLOW UP: 1 Year Follow-up The CAD time checker was used.
== END 2023-12-24 14:48 | disposition home or self-care (01) ==
PROVIDERS: PCP Nurse Practitioner Family; Visit Provider Nurse Practitioner Family
DX: Z12.31 Encounter for screening mammogram for malignant neoplasm of breast (principal)
CPT/HCPCS: 77063; 77067

== ENCOUNTER 2024-02-11 16:25 | Outpatient (CLI) | payer MEDICARE, MEDICAID, SELFPAY ==
--- NOTE | 2024-02-11 16:44 | XR_ITS ---
WS: [email or web address] Exam: XR foot LT min 3V* [id number] Date/Time of Exam: 02/11/2024 4:45 PM Reason For Exam: PAIN IN LEFT TOES No acute fracture or dislocation. Mild degenerative changes in the IP and first MP joint. Plantar raisa l spur. No soft tissue foreign bodies. XR/XR foot LT min 3V* [id number] IMPRESSION: 1. Mild degenerative changes. No fracture or other significant finding.
== END 2024-02-11 16:26 | disposition home or self-care (01) ==
LOC: RAD 16:26
PROVIDERS: PCP Nurse Practitioner Family; Visit Provider Nurse Practitioner Family
DX: M79.675 Pain in left toe(s) (principal); M77.32 Calcaneal spur, left foot
CPT/HCPCS: 73630

== ENCOUNTER 2025-01-05 15:41 | Outpatient (CLI) | payer OTHER, MEDICAID, SELFPAY ==
--- NOTE | 2025-01-05 15:56 | XR_ITS ---
WS: [id number] DEXA (DUAL ENERGY X-RAY ABSORPTIOMETRY) Bone mineral density was performed using a Toothpick machine. HISTORY: POSTMENOPAUSAL COMPARISON: None available. Lumbar spine BMD (L1-L4): 1.063 T score: -1.1 Z score: 0.0 Total hip BMD: Left: 0.729 g/cm2. T score: -2.2 Z score: -1.3 Right: 0.716 g/cm2. T score: -2.3 Z score: -1.4 10 year probability of a major osteoporotic fracture is 13.5%. XR/XR DEXA axial skeleton* [id number] IMPRESSION: OSTEOPENIA based upon the WHO classification for females.
== END 2025-01-05 15:42 | disposition home or self-care (01) ==
LOC: RAD 15:44
PROVIDERS: PCP Nurse Practitioner Family; Visit Provider Nurse Practitioner Family
DX: Z78.0 Asymptomatic menopausal state (principal); M85.80 Other specified disorders of bone density and structure, unspecified site
CPT/HCPCS: 77080

== ENCOUNTER 2025-03-02 12:18 | Outpatient (CLI) | payer OTHER, MEDICAID, SELFPAY ==
--- NOTE | 2025-03-02 12:29 | XR_ITS ---
WS: [email or web address] XR hip LT 2-3V wo/w pel* [id number] REASON FOR EXAM: LEFT HIP PAIN FINDINGS: No fracture or focal bone lesion. Minimal joint space narrowing with mild subchondral sclerosis in the acetabulum. No significant abnormality of the femoral head. XR/XR hip LT 2-3V wo/w pel* [id number] IMPRESSION: Minimal osteoarthritis of the left hip as above.
--- NOTE | 2025-03-02 12:29 | XR_ITS ---
WS: [email or web address] XR lumbar spine 2-3V* [id number] REASON FOR EXAM: LOW BACK PAIN FINDINGS: Relatively normal lumbar spine curvatures. There is mild compression deformity of the superior endplate of L1 which was not present on the most recent examination of 05/01/2016. The remainder the lumbar vertebrae are unremarkable. The disc spaces are intact and relatively well preserved. No spondylolysis. No significant spondylolisthesis. XR/XR lumbar spine 2-3V* [id number] IMPRESSION: Compression deformity of L1 of unknown chronicity.
== END 2025-03-02 12:19 | disposition home or self-care (01) ==
LOC: RAD 12:25
PROVIDERS: PCP Nurse Practitioner Family; Visit Provider Nurse Practitioner Family
DX: M25.552 Pain in left hip (principal); M54.50 Low back pain, unspecified; G95.29 Other cord compression
CPT/HCPCS: 72100; 73502

== ENCOUNTER 2025-04-05 11:53 | Outpatient (RCR) | payer OTHER, MEDICAID, SELFPAY | END 2025-04-17 23:59 | disposition home or self-care (01) | LOC: SPT 11:53 | PROVIDERS: Visit Provider Nurse Practitioner Family | DX: M54.59 Other low back pain (principal); M25.552 Pain in left hip | CPT/HCPCS: 97161 ==

== ENCOUNTER 2025-04-18 05:00 | Outpatient (RCR) | payer MEDICAID, MEDICARE, SELFPAY | END 2025-05-17 23:59 | disposition home or self-care (01) | LOC: SPT 05:00 | PROVIDERS: Visit Provider Nurse Practitioner Family | DX: M54.50 Low back pain, unspecified (principal); M25.552 Pain in left hip; M79.604 Pain in right leg | CPT/HCPCS: 97110 ==